=== PATIENT | female | born 1940 | race Caucasian/White ===

== ENCOUNTER 2020-04-21 | Outpatient (REF) | payer MEDICARE, SELFPAY | END 2020-04-21 00:01 | disposition home or self-care (01) | LOC: HO.VC | PROVIDERS: Visit Provider Internal Medicine | DX: Z23 Encounter for immunization (principal) | CPT/HCPCS: 0011A ==

== ENCOUNTER 2020-05-19 | Outpatient (REF) | payer MEDICARE, SELFPAY | END 2020-05-19 00:01 | disposition home or self-care (01) | LOC: HO.VC | PROVIDERS: Visit Provider Internal Medicine | DX: Z23 Encounter for immunization (principal) | CPT/HCPCS: 0012A ==

== ENCOUNTER → 2021-02-01 08:12 | Outpatient (BNVA) | payer MEDICARE, SELFPAY | PROVIDERS: PCP Hospitalist; Referring Provider Hospitalist; Visit Provider Nurse Practitioner Family | DX: Z12.11 Encounter for screening for malignant neoplasm of colon (principal); K21.9 Gastro-esophageal reflux disease without esophagitis | CPT/HCPCS: 99212 ==

== ENCOUNTER 2021-03-21 07:36 | Day surgery (SDC) | payer MEDICARE, SELFPAY ==
[2021-03-14 09:32] VITALS: BMI 28.5
[2021-03-14 12:43] VITALS: BMI 29.2
--- NOTE | 2021-03-17 11:49 | HO.ANESPROP2 ---
Documented by User: Reina Grullon NP 03/17/21 11:50 HPI - Anesthesia Eval Consult details Narrative: 80yo F for Colonoscopy PMFSH Active Problems Active Problems: All Active Problems (Updated 03/14/21 @ 12:43 by Reema Du RN) Hypertension (Acute) Candidiasis of mouth and esophagus (Acute) CVA, old, hemiparesis (Acute) Past Medical History Medical History (Updated 03/14/21 @ 12:43 by Reema Du RN) Arthritis Diarrhea Elevated cholesterol History of CVA (cerebrovascular accident) Lactose intolerance Low back pain Recent weight loss Family History Family History Father Lung cancer Mother Hypertension Sister Early onset Alzheimer's dementia Daughter Hypothyroidism Surgical History Surgical History (Updated 02/01/21 @ 08:22 by SHARA Villagomez) History of esophagogastroduodenoscopy (EGD) History of tonsillectomy Hx of colonoscopy Skin cancer of anterior chest Social History Social History Household Members Other:: daughter and son-in-law Are you a primary spiritual care coordinator to a significant other at home: No Do you presently have visiting nurse or other home services: Yes (meals on wheels) Patient Tobacco Use Status: Former Tobacco user Quit Date: years ago Tobacco use type: Cigarette Use of substances other than those prescribed or required for medical reasons: No Are you DNR?: No Advance Directives: No (will bring dos) Advance Directives Information Provided: No Advance Directives on File: No Recently lost weight without trying: No Meds Allergies Allergy/AdvReac Type Severity Reaction Status Date / Time No Known Allergies Allergy Verified 03/14/21 12:36 [No Known Allergies*] Home Medications Medication Instructions Recorded Confirmed Last Taken Type aripiprazole 10 mg tablet 10 mg PO DAILY 02/01/21 03/14/21 Unknown History levothyroxine 25 mcg capsule 25 mcg PO DAILY 03/14/21 03/14/21 Unknown History tamsulosin 0.4 mg capsule 1 cap PO DAILY 03/14/21 03/14/21 Unknown History Exam Exam Date and Time: March 17, 2021 1149 Height,Weight and Vital Signs: Height 5 ft 2 in Weight 72.575 kg Assessment and Plan Assessment Anesthesia Assessment: Chart Reviewed Documented by User: Stefani Cowan MD 03/21/21 07:52 [facility] Past Medical History Medical History (Updated 03/14/21 @ 12:43 by Reema Du, CESAR) Arthritis Diarrhea Elevated cholesterol History of CVA (cerebrovascular accident) Lactose intolerance Low back pain Recent weight loss Family History Family History Father Lung cancer Mother Hypertension Sister Early onset Alzheimer's dementia Daughter Hypothyroidism Family history of problems with anesthesia: No Surgical History Surgical History (Updated 02/01/21 @ 08:22 by SHARA Villagomez) History of esophagogastroduodenoscopy (EGD) History of tonsillectomy Hx of colonoscopy Skin cancer of anterior chest History of Problems with Anesthesia: No Social History Social History Household Members Other:: daughter and son-in-law Are you a primary spiritual care coordinator to a significant other at home: No Do you presently have visiting nurse or other home services: Yes (meals on wheels) Patient Tobacco Use Status: Former Tobacco user Quit Date: years ago Tobacco use type: Cigarette Use of substances other than those prescribed or required for medical reasons: No Are you DNR?: No Advance Directives: No (will bring dos) Advance Directives Information Provided: No Advance Directives on File: No Recently lost weight without trying: No Meds Allergies Allergy/AdvReac Type Severity Reaction Status Date / Time No Known Allergies Allergy Verified 03/14/21 12:36 [No Known Allergies*] Home Medications Medication Instructions Recorded Confirmed Last Taken Type aripiprazole 10 mg tablet 10 mg PO DAILY 02/01/21 03/14/21 Unknown History levothyroxine 25 mcg capsule 25 mcg PO DAILY 03/14/21 03/14/21 Unknown History tamsulosin 0.4 mg capsule 1 cap PO DAILY 03/14/21 03/14/21 Unknown History Exam Airway Mallampati Class: II TM Dist: >3cm Neck ROM: Full Heart: rrr Lungs: ctabl Assessment and Plan Assessment Anesthesia Assessment: Anesthesia Plan Discussed and Chart Reviewed Final Anesthetic Review Family History of Problems with Anesthesia: No History of Problems with Anesthesia: No NPO: Yes ASA Class: III Final Preanesthetic Review: No Changes in Pt Med Stat, Meds/Allgs Chart Reviewed and Consent Obtained/Reviewed Patient Risk: Intermediate Procedure Risk: Intermediate Anesthetic Plan Anesthetic Plan: MAC: Disposition: Standard PACU
[2021-03-21 08:10] VITALS: BP 138/54; PULSE 59; RESP 18; TEMP 37.5; O2SAT 94
--- NOTE | 2021-03-21 08:13 | MHC.SHP ---
Pre-Procedural Eval Section A Date of Service: 03/21/21 The patient is an INPATIENT: No The History & Physical has been completed within 30 days and I have reviewed it.: No Section B Chief Complaint: screening Details of Present Illness: Colon cancer screening Relevant Family History (Specify if Yes): No Relevant Social History: Tobacco Use (Former smoker) Present Medications: see Short Stay Collaborative assessment Medical History: Significant History (Hypertension, hx of CVA) History of Previous Operations: Relevant previous surgery/procedure and date(s) (History of esophagogastroduodenoscopy (EGD) History of tonsillectomy Hx of colonoscopy Skin cancer of anterior chest) Allergies: Allergies Allergy/AdvReac Type Severity Reaction Status Date / Time No Known Allergies Allergy Verified 03/14/21 12:36 [No Known Allergies*] Review of Systems Sugical H&P ROS: Negative: Constitution, Cardiovascular, Respiratory and Gastrointestinal and Yes, Specify: Neurological (status post CVA) Exam Surgical H&P Exam: Normal: Heart, Normal: Lungs, Normal: Extremities and Normal: Abdomen Plan Diagnosis/Plan: Unchanged I have reviewed the history and physical and performed a pertinent physical examination on my patient. No changes have occurred unless specified.
--- NOTE | 2021-03-21 08:15 | PM.PROC ---
Brief Operative Note Date of procedure: 03/21/21 Pre-op diagnosis: Colon cancer screening, history of colon polyps Post-op diagnosis: other (Colon polyps, diverticulosis, hemorrhoids) Procedure: Procedure:? COLONOSCOPY TILL CECUM WITH BIOPSIES AND SNARE POLYPECTOMY Consent: Indications for the procedure and potential complications of bleeding, perforation, reaction to medications and missed diagnosis were discussed with the patient and informed consent was obtained. Instrument: Olympus PCF H 190 L variable stiffness pediatric colonoscope Monitoring: Vital signs and clinical assessment, intermittent blood pressure monitoring, continuous EKG monitoring, Pulse oximetry and Carbon Dioxide monitoring were done throughout the procedure. Colon withdrawl time was 38 minutes. Procedure: The patient was placed in the left lateral decubitis position and pre-procedure medications were administered. After a digital rectal examination of the ano-rectum, the video colonoscope was inserted into the rectum and advanced through the colon to the cecum. The colonoscope was slowly withdrawn in a retrograde panoramic fashion and the colon mucosa was carefully examined including a retroflexed view of the rectum. Findings and interventions are described below. Procedure Difficulty: Without difficulty Findings: Terminal Ileum: Not evaluated Cecum:? A 1.5 cms sessile polyp raised with 4 cc of Orise solution and removed with a hot snare Ascending Colon:? Scattered moderate diverticulosis Transverse Colon:? A 12-15 mm sessile polyp removed with a hot snare.? Scattered moderate diverticulosis Descending Colon:? Scattered moderate diverticulosis Sigmoid Colon:? A 2 cms sessile polyp at 45 cms (marked with maryjo ink) and a 1 cms sessile polyp at 35 cms? - both removed with a hot snare.? Moderate diverticulosis Rectum:? A 6-7 mm sessile polyp removed with a cold snare. Ano-rectum:? Moderate internal hemorrhoids Colon preparation:? Good after copious irrigation and fair in the rectum/distal sigmoid colon. Impression and Post Procedure Diagnosis: Colonoscopy Findings: Five medium sized polyps removed Moderate diverticulosis seen in the entire colon Moderate hemorrhoids on retroflexed exam. Plan: Await pathology results Patient has an appointment on 04/04/21 in the [facility] with ? Sue Loja FNP-BC. Repeat Colonoscopy interval based on path results - in 2-3 years if polyps are adenomatous and due to a hx of adenomatous colon polyps.. Above findings were reviewed with the patient and colon polyps and diverticulosis handouts were given in the discharge area Surgeon:?Kami Hollis MD Anesthesia: MAC (Reid Crowe CRNA) Surgeon: Kami Hollis Development Team Lead: Estrella Saldana Estimated blood loss (mL): 0 Pathology: other (A. cecal polyp with Orise? B. random colon bxs, R/O microscopic colitis? C. transverse colon polyp? D. sigmoid polyp at 45 cm? E. sigmoid polyp at 35 cm? F. rectal polyp) Condition: stable Disposition: PACU
[2021-03-21 09:40] VITALS: BP 121/54; PULSE 58; RESP 20; TEMP 36.6; O2SAT 95
[2021-03-21 09:55] VITALS: BP 111/49; PULSE 62; RESP 20; TEMP 36.6; O2SAT 97
== END 2021-03-21 10:38 | disposition home or self-care (01) ==
PROVIDERS: PCP Hospitalist; Visit Provider Internal Medicine Gastroenterology
PROC: 0DJD8ZZ Inspection of Lower Intestinal Tract, Via Natural or Artificial Opening Endoscopic (ICD-10-PCS; CPT 45378; principal; 2021-03-21 08:30)
DX: Z12.11 Encounter for screening for malignant neoplasm of colon (principal); Z86.010 Personal history of colon polyps; D12.0 Benign neoplasm of cecum; D12.3 Benign neoplasm of transverse colon; D12.5 Benign neoplasm of sigmoid colon; D12.8 Benign neoplasm of rectum; R19.7 Diarrhea, unspecified; K57.30 Diverticulosis of large intestine without perforation or abscess without bleeding; K64.8 Other hemorrhoids; K21.9 Gastro-esophageal reflux disease without esophagitis; I10 Essential (primary) hypertension; I69.920 Aphasia following unspecified cerebrovascular disease; I69.951 Hemiplegia and hemiparesis following unspecified cerebrovascular disease affecting right dominant side; Z87.891 Personal history of nicotine dependence; Z85.828 Personal history of other malignant neoplasm of skin; E73.9 Lactose intolerance, unspecified; E78.00 Pure hypercholesterolemia, unspecified; Z79.899 Other long term (current) drug therapy
CPT/HCPCS: 45385; 45380; 45381; 88305